=== PATIENT | female | born 1990 | race Caucasian/White ===

== ENCOUNTER 2017-02-14 05:58 | Inpatient (IN) | payer OTHER ==
[~2017-02-14] VITALS: Ht 172.7 cm; Wt 93.4 kg
[~2017-02-14 05:58] MED LIST: SERT50TA PO
[2017-02-14] MEDS ORDERED: 0.9 % SODIUM CHLORIDE 10 ML DISP.SYRIN. IV PRN ×2 (06:15→17:45)
[2017-02-14] MEDS ORDERED: TERBUTALINE 1 MG/ML VIAL. SQ PRN (06:15)
[2017-02-14] MEDS ORDERED: LEVE500T6 PO (06:15)
[2017-02-14] MEDS ORDERED: ONDANSETRON PF 4 MG/2 ML VIAL. IV PRN (06:15)
[2017-02-14] MEDS ORDERED: OXYTOCIN 30 UNIT/500 ML PREMIX 500 ML IV PRN ×3 (06:15→17:45)
[2017-02-14] MEDS ORDERED: CYCL10TA2 PO (06:15)
[2017-02-14] MEDS ORDERED: LIDOCAINE 1% PF 30 ML VIAL. INJ PRN (06:15)
[2017-02-14] MEDS ORDERED: AMPICILLIN SODIUM 2 GM in IV NORMAL SALINE 100ML 100 ML IV ONE (06:30)
[2017-02-14 06:45] VITALS: BP 119/67
[2017-02-14] MEDS: IV RINGERS,LACTATED 1000ML 1,000 ML IV SCH ×3 (06:46→16:17)
[2017-02-14 07:15] LABS: HEMATOCRIT 36.2 % (36.0-47.0); HEMOGLOBIN 12.3 g/dL (12.0-15.5); RED BLOOD COUNT 3.86 x10^6/uL (3.50-5.40); RED CELL DISTRIBUTION WIDTH 13.5 % (11.5-14.5); WHITE BLOOD COUNT 8.3 x10^3/uL (4.0-11.0)
[2017-02-14] MEDS: levETIRAcetam 500 MG TABLET PO SCH ×2 (08:09→22:12)
[2017-02-14] MEDS: AMPICILLIN SODIUM 1 GM in IV NORMAL SALINE 50ML 50 ML IV SCH ×2 (10:52→14:28)
[2017-02-14] MEDS ORDERED: ROPIVacaine 0.2% IN 0.9%NACL PF 40 MG/20 ML DISP.SYRIN. ONE ×2 (10:59→11:00)
[2017-02-14] MEDS ORDERED: LIDOCAINE 2% PF Vial for OR 5 ML VIAL. ONE (17:13)
--- NOTE | 2017-02-14 17:35 | PDOC ---
VAGINAL DELIVERY DATE DATE: 02/14/17 TIME: 17:34 EDC: Feb 20, 2017 VAGINAL DELIVERY: VTX VACCUM ASSISTED: No SEX: Male WEIGHT Weight [ ] Nuchal Cord: No Amniotic Fluid: Meconium PAIN: Epidural EXTENSION: No EBL 300cc COMPLICATIONS none CONDITION Stable Signs of Intrauterine Infectio: None Shoulder Dystocia: No DIAGNOSIS TIUP del Problems: BROOKS RUBI MD February 14, 2017 17:35
--- NOTE | 2017-02-14 17:39 | PDOC1 ---
OB - History Hx of Present Care: Good Care Ultrasounds: Normal mid trimester US Obstetrical Complications: None Medical Complications: None, Other (Seizure disorder) Past Family/Social History * Past Medical, Surgical, Family and Obstetric Histories reviewed from chart. Blood Type: A+ Rubella: Immune RPR/VDRL: Negative GBS Status: Positive HBsAG: Negative OB - Chief Complaint & HPI Date of Admission: Date of Admission: February 14, 2017 at 05:58 Chief Complaint/History : 3 Para: 2 EDC: Feb 20, 2017 Reason for admission: induction of labor Indication for induction: other Admission Nurse Assessment Rev: Yes Problems: OB - Admission Exam Physical Exam Vitals: VS - Last 72 Hours, by Label Date Time Temp Pulse Resp B/P (MAP) Pulse Ox O2 Delivery O2 Flow Rate FiO2 02/14/17 06:45 97.7 65 18 119/67 (84) Room Air 97.7 HEENT: Normal, Nasal Mucosa Normal, Oropharynx Normal, Moist Membranes, Fontanelles Normal Heart: Regular Rate Lungs: Clear, Equal Abdomen: Gravid Extremities: Normal Pulses, No tenderness or swelling Reflexes: Normal Cervical Dilatation: 2cm Effacement: 50% Station: Ballotable Membranes: Intact Amniotic Fluid: Meconium Heart Rate: Normal Accelerations: Accelerations Present Short Term Variability: Present Contractions on Admission: >10 Minutes Apart Intensity: Moderate Assessment/Plan Assessment/Plan TIUP Seizure Disorder Induction ACSVD BROOKS RUBI MD February 14, 2017 17:39
[2017-02-14] MEDS ORDERED: ACETAMINOPHEN 325 MG TABLET. PO PRN (17:45)
[2017-02-14] MEDS ORDERED: SIMETHICONE 80 MG TAB.CHEW PO PRN (17:45)
[2017-02-14] MEDS ORDERED: diphenhydrAMINE HCL 25 MG CAPSULE PO PRN (17:45)
[2017-02-14] MEDS ORDERED: MAG HYDROX/ALUMINUM HYD/SIMETH 30 ML ORAL.SUSP PO PRN (17:45)
[2017-02-14] MEDS ORDERED: MAGNESIUM HYDROXIDE 2,400 MG/30 ML ORAL.SUSP. PO PRN (17:45)
[2017-02-14] MEDS ORDERED: HYDROCORTISONE 1% TOPICAL OINTMENT 30GM TUBE. TP PRN (17:45)
[2017-02-14] MEDS ORDERED: BENZOCAINE 20% TOPICAL AEROSOL SPRAY 57GM CAN. TP PRN (17:45)
[2017-02-14] MEDS ORDERED: ZOLPIDEM 5 MG TABLET. PO PRN (17:45)
[2017-02-14] MEDS ORDERED: PHENYLEPH/MINERAL OIL/PETROLAT RECTAL OINTMENT 28GM TUBE. RC PRN (17:45)
[2017-02-14] MEDS: IBUPROFEN 600 MG TABLET. PO PRN (18:52)
[2017-02-14 21:00] VITALS: BP 116/54
[2017-02-14] MEDS: IBUPROFEN 800 MG TABLET. PO SCH (22:00)
[2017-02-14 22:10] VITALS: BP 108/60
[2017-02-14] MEDS: CYCLOBENZAPRINE 10 MG TABLET. PO SCH (22:12)
[2017-02-15] VITALS (14 sets, daily range): BP systolic 90–120; BP diastolic 49–68
[2017-02-15] MEDS: IBUPROFEN 600 MG TABLET. PO PRN (05:23)
[2017-02-15] MEDS: IBUPROFEN 800 MG TABLET. PO SCH ×3 (06:00→22:03)
[2017-02-15 06:15] LABS: RPR REFLEX Non Reactive (Non Reactive)
[2017-02-15] MEDS ORDERED: IV RINGERS,LACTATED 1000ML 1,000 ML IV SCH (06:37)
[2017-02-15] MEDS ORDERED: LIDOCAINE 1% 1 ML SYRINGE. ID PRN (06:45)
[2017-02-15] MEDS ORDERED: fentaNYL PF VIAL 100 MCG/2 ML VIAL IV PRN (06:45)
[2017-02-15] MEDS ORDERED: ONDANSETRON PF 4 MG/2 ML VIAL. IV PRN (06:45)
[2017-02-15] MEDS ORDERED: PROCHLORPERAZINE 10 MG/2 ML VIAL. IV PRN (06:45)
[2017-02-15] MEDS: levETIRAcetam 500 MG TABLET PO SCH ×2 (07:14→22:03)
[2017-02-15] MEDS ORDERED: FERROUS SULFATE 325 MG TABLET. PO SCH (08:00)
[2017-02-15] MEDS ORDERED: ROCURONIUM 50 MG/5 ML VIAL. ONE (08:32)
[2017-02-15] MEDS ORDERED: fentaNYL PF VIAL 100 MCG/2 ML VIAL ONE (08:32)
[2017-02-15] MEDS ORDERED: LIDOCAINE 2% PF Vial for OR 5 ML VIAL. ONE (08:33)
[2017-02-15] MEDS ORDERED: ONDANSETRON PF 4 MG/2 ML VIAL. ONE (08:33)
[2017-02-15] MEDS ORDERED: PROPOFOL 20 ML IV ONE (08:33)
[2017-02-15] MEDS ORDERED: DEXAMETHASONE SOD PHOS 20 MG/5 ML VIAL. ONE (08:33)
[2017-02-15] MEDS ORDERED: DESFLURANE 31 TO 60 MINUTES IH ONE (08:33)
[2017-02-15] MEDS ORDERED: BUPIVAC MPF-EPI 0.5%-1:200000 30 ML VIAL. ONE (08:46)
[2017-02-15] MEDS: fentaNYL PF VIAL 100 MCG/2 ML VIAL IV PRN ×3 (10:57→12:03)
[2017-02-15] MEDS: MORPHINE SULFATE 2 MG/ML DISP.SYRIN. IV PRN ×2 (11:03→11:14)
[2017-02-15] MEDS: HYDROmorphone 2 MG/ML VIAL IV PRN ×2 (11:22→11:36)
[2017-02-15] MEDS: HYDROcodone/APAP 5/325MG 1 TAB TABLET PO PRN ×2 (13:35→18:21)
[2017-02-15] MEDS: CYCLOBENZAPRINE 10 MG TABLET. PO SCH (22:03)
[2017-02-16] MEDS: IBUPROFEN 800 MG TABLET. PO SCH (06:18)
[2017-02-16 06:19] VITALS: BP 96/54
[2017-02-16] MEDS: levETIRAcetam 500 MG TABLET PO SCH (08:39)
[2017-02-16 11:10] VITALS: BP 101/58
[2017-02-16] MEDS: HYDROcodone/APAP 5/325MG 1 TAB TABLET PO PRN (11:10)
[2017-02-16 17:00] VITALS: BP 112/68
--- NOTE | 2017-02-16 18:21 | PDOC3 ---
OB DISCHARGE SUMMARY DATE OF ADMISSION: 02/14/17 DATE OF DISCHARGE: 02/16/17 REASON FOR ADMISSION: Induction of labor PROCEDURES: Ultrasound INTRAPARTUM PROCEDURES: Spontanous Vag Deliv PROCEDURES: Tubal Ligation, None OPERATIONS: None DISCHARGE DIAGNOSIS: Term Delivered DISCHARGE INFORMATION: Activity, Diet HOSPITAL COURSE Unremarkable CONDITION AT DISCHARGE Stable BROOKS RUBI MD Feb 16, 2017 18:21
--- NOTE | 2017-02-16 18:22 | PDOC ---
BRIEF OPERATIVE NOTE Date: February 15, 2017 Pre-Op Diagnosis Multiparous desires permanent sterilization Post-Op Diagnosis Same Procedure Performed PPBTL Surgeon Gina [employer] Team Member None Anesthesia Type: General Blood Loss 20cc Specimens Obtained L and R ovaducts Complications None BROOKS RUBI MD Feb 16, 2017 18:22
[2017-02-16] MEDS ORDERED: NAPR500T PO (18:26)
[2017-02-16] MEDS ORDERED: OXYC-323 PO (18:26)
--- NOTE | 2017-02-16 22:46 | OP ---
DATE OF SURGERY: 02/15/2017 PREOPERATIVE DIAGNOSIS: Multiparous, desires permanent sterilization. POSTOPERATIVE DIAGNOSIS: Multiparous, desires permanent sterilization. PROCEDURE: bilateral tubal ligation. SURGEON: Brooks Fuentes M.D. ENTRY LEVEL ADMINISTRATIVE ASSISTANT: None. ANESTHESIA: General. ESTIMATED BLOOD LOSS: 20 mL. FLUIDS: Crystalloid. SPECIMENS: Left and right oviducts. COMPLICATIONS: None. CONDITION: Stable. DESCRIPTION OF PROCEDURE: Risks, benefits, indications, alternatives discussed in detail with the patient. The patient brought to the OR theater, placed in supine position. After adequate general anesthesia, the patient was prepped and draped in usual sterile manner. A small transverse infraumbilical incision was made sharply with a scalpel, carried down through subcutaneous tissue with Encarnacion scissors. A rectus fascia was grasped x 2 with Allis clamps and elevated way above the intraabdominal contents, incised sharply with the scalpel. The parietal peritoneum was entered bluntly with gloved hand. [facility] retractor was placed within this incision, first to manipulate the incision over the left cornu. Left cornu was identified tube was grasped with Windom clamps, followed to its fimbriated end . A relatively avascular portion in the mid ampullary region was identified. Window was created, 2-0 chromic ties were used to doubly ligate the tube approximately 3 cm apart, then transected the tube between the two ligatures. The ends of each segment were burned and tube was allowed to fall back within the abdominal cavity. Same procedure was carried out on the opposite side. The rectus fascia was reapproximated with 0 Vicryl in a running manner. Skin was reapproximated with 4-0 Monocryl in subcuticular fashion. The incision site was infiltrated with 0.5% Marcaine with epinephrine for additional pain control. The patient tolerated the procedure well. Sponge, needle and instrument counts were correct x 2 per nursing staff. The patient went to postop anesthesia recovery in stable condition. BROOKS FUENTES MD DR: LYNETTE/jose JOB#: [id number] / [id number]
--- NOTE | 2017-02-17 13:54 | PATHOLOGY ---
PATHOLOGY REPORT * * * * * * * * FINAL DIAGNOSIS: A. Left tubal ligation: - Segment of fallopian tube confirmed, with cystic Walthard's rests. B. Right tubal ligation: - Segment of fallopian tube confirmed, with cystic Walthard's rests. REPORT ELECTRONICALLY SIGNED BY: Andrei Biggs M.D. DATE/TIME: 02/17/2017 13:53 * * * * * * * * GROSS PATHOLOGY: A. Received in formalin labeled "Tri Underwood, left fallopian tube," is a pink-pressley segment of fallopian tube measuring 1.3 cm in length and 0.6 cm in diameter. The tissue is serially sectioned into 3 segments and submitted entirely in cassette A1. B. Received in formalin labeled "Tri Underwood, right fallopian tube," is a pink-pressley segment of fallopian tube measuring 1.8 cm in length and 0.5 cm in diameter. The tissue is serially sectioned into 6 segments and submitted entirely in cassette B1. (NEVIN; 02/16/2017) INITIAL CPT CODE(S): A; 22787 B; 22554 Professional services performed [place] [address] Technical services performed by [facility] at [address] [place] [address], [address] [address]. SPECIMEN(S) RECEIVED: A.Left fallopian tube B.Right fallopian tube CLINICAL HISTORY: Bilateral tubal ligation PATIENT: TRI UNDERWOOD /AGE: 2 1990 (Age: 26) PATIENT #: [id number] ALT CASE #: SPECIMEN COLLECTION DATE: 02/15/2017 SPECIMEN RECEIVED DATE: 02/15/2017 [facility] - [address] [place] [address] - PHONE: [phone] * * * END OF REPORT * * *
== END 2017-02-16 19:09 | disposition home or self-care (01) | DRG 767 ==
LOC: 3 SO LND 05:58 → 3 NORTH 21:01
PROVIDERS: ADMIT Specialist; ATTEND Specialist
PROC: 10E0XZZ Delivery of Products of Conception, External Approach (ICD-10-PCS; principal; 2017-02-14)
PROC: 3E0S3CZ (ICD-10-PCS; 2017-02-14)
PROC: 00HU33Z Insertion of Infusion Device into Spinal Canal, Percutaneous Approach (ICD-10-PCS; 2017-02-14)
PROC: 0UB70ZZ Excision of Bilateral Fallopian Tubes, Open Approach (ICD-10-PCS; 2017-02-15)
DX: O77.0 Labor and delivery complicated by meconium in amniotic fluid (principal); O99.354 Diseases of the nervous system complicating childbirth; G40.909 Epilepsy, unspecified, not intractable, without status epilepticus; Z37.0 Single live birth; Z3A.00 Weeks of gestation of pregnancy not specified; Z30.2 Encounter for sterilization
CPT/HCPCS: 36415; 85014; 85027; 86593; 86850; 86900; 86901; C1769; J0290; J0780; J1100; J1170; J2270; J2405; J2590; J2704; J2795; J3010; J3490; J7120

== ENCOUNTER 2018-09-23 13:23 | Emergency (ER) | payer SELFPAY ==
[~2018-09-23] VITALS: Ht 175.3 cm; Wt 63.5 kg
[~2018-09-23 13:23] MED LIST changes: +CYCL10TA2 PO; +LEVE500T6 PO; +NAPR-683 PO; +OXYC1TAB15 PO
[2018-09-23 14:42] LABS: BILIRUBIN,URINE NEGATIVE (NEG); CLARITY,URINE CLEAR; COLOR,URINE YELLOW; NITRITE,URINE NEGATIVE (NEG); PROTEIN,URINE NEGATIVE (NEG-TRACE); UROBILINOGEN,URINE 0.2 mg/dL (0.2 mg/dL)
[2018-09-23 14:53] LABS: BACTERIA,URINE FEW /HPF (0-FEW); SQUAMOUS EPITHELIAL CELL,UR MOD /LPF; WBC,URINE 0 /HPF (0-4)
[2018-09-23] MEDS ORDERED: fentaNYL PF VIAL 100 MCG/2 ML VIAL IV ONE (15:00)
[2018-09-23] MEDS ORDERED: KETOROLAC 30 MG/ML VIAL. IV ONE (15:00)
[2018-09-23] MEDS ORDERED: IV NORMAL SALINE 1000ML BAG 1,000 ML IV ONE (15:00)
--- NOTE | 2018-09-23 15:08 | PHYS DOC ---
Past Medical History Past Medical History: Seizure Additional Past Medical Histor: epilepsy, OVARIAN CYSTS, chronic back pain Past Surgical History: No Surgical History, Tubal ligation Alcohol Use: None Drug Use: Marijuana Adult General Chief Complaint Chief Complaint: PAIN ON URINATION [facility] HPI Patient is a 27 year old female who presents with right flank pain that radiates to the right lower abdomen. Patient states started September 19. She denies seeing any blood in her urine, nausea, vomiting, diarrhea, fever, vaginal bleeding, vaginal discharge. She rates pain a 10 out of 10. States that he contact the contraction. She is no past medical history normally history she has tubal ligation. She has no known drug allergies. She last took any for pain yesterday which was ibuprofen and tramadol. Review of Systems Review of Systems Constitutional: Denies fever or chills [] Eyes: Denies change in visual acuity, redness, or eye pain [] HENT: Denies nasal congestion or sore throat [] Respiratory: Denies cough or shortness of breath [] Cardiovascular: No additional information not addressed in HPI [] GI: Denies abdominal pain, nausea, vomiting, bloody stools or diarrhea [] : Denies dysuria or hematuria [] Musculoskeletal: Denies back pain or joint pain [] Integument: Denies rash or skin lesions [] Neurologic: Denies headache, focal weakness or sensory changes [] Endocrine: Denies polyuria or polydipsia [] All other systems were reviewed and found to be within normal limits, except as documented in this note. Current Medications Current Medications Current Medications Medications (Trade) Dose Ordered Sig/Jaskaran Start Time Stop Time Status Last Admin Dose Admin Fentanyl Citrate (Fentanyl 2ml Vial) 50 mcg 1X ONCE 09/23/18 15:00 09/23/18 15:03 DC 09/23/18 15:22 50 MCG Ketorolac Tromethamine (Toradol 30mg Vial) 30 mg 1X ONCE 09/23/18 15:00 09/23/18 15:03 DC 09/23/18 15:19 30 MG Sodium Chloride 1,000 ml @ 1,000 mls/hr 1X ONCE 09/23/18 15:00 09/23/18 15:59 DC 09/23/18 15:19 1,000 MLS/HR Allergies Allergies Allergies Coded Allergies Type Severity Reaction Last Updated Verified No Known Drug Allergies 10/7/14 No Physical Exam Physical Exam Constitutional: Well developed, well nourished, no acute distress, non-toxic appearance. [] HENT: Normocephalic, atraumatic, bilateral external ears normal, oropharynx moist, no oral exudates, nose normal. [] Eyes: PERRLA, EOMI, conjunctiva normal, no discharge. [] Neck: Normal range of motion, no tenderness, supple, no stridor. [] Cardiovascular:Heart rate regular rhythm, no murmur [] Lungs & Thorax: Bilateral breath sounds clear to auscultation [] Abdomen: Bowel sounds normal, soft, no tenderness, no masses, no pulsatile masses. [] Skin: Warm, dry, no erythema, no rash. [] Back: No tenderness, no CVA tenderness. [] Extremities: No tenderness, no cyanosis, no clubbing, ROM intact, no edema. [] Neurologic: Alert and oriented X 3, normal motor function, normal sensory function, no focal deficits noted. [] Psychologic: Affect normal, judgement normal, mood normal. [] Current Patient Data Vital Signs Vital Signs Date Time Temp Pulse Resp B/P (MAP) Pulse Ox O2 Delivery O2 Flow Rate FiO2 09/23/18 16:50 48 90/51 (64) 100 09/23/18 16:00 16 Room Air 09/23/18 14:32 98.6 98.6 Lab Values Laboratory Tests Test 09/23/18 14:30 09/23/18 14:38 09/23/18 14:47 09/23/18 15:15 Urine Collection Type Unknown Urine Color Yellow Urine Clarity Clear Urine pH 7.0 Urine Specific [place] 1.015 Urine Protein Negative mg/dL (NEG-TRACE) Urine Glucose (UA) Negative mg/dL (NEG) Urine Ketones (Stick) Negative mg/dL (NEG) Urine Blood Negative (NEG) Urine Nitrite Negative (NEG) Urine Bilirubin Negative (NEG) Urine Urobilinogen Dipstick 0.2 mg/dL (0.2 mg/dL) Urine Leukocyte Esterase Negative (NEG) Urine RBC 1-2 /HPF (0-2) Urine WBC 0 /HPF (0-4) Urine Squamous Epithelial Cells Mod /LPF Urine Bacteria Few /HPF (0-FEW) Urine Mucus Mod /LPF POC Urine HCG, Qualitative Hcg negative (Negative) Hcg negative (Negative) White Blood Count 6.7 x10^3/uL (4.0-11.0) Red Blood Count 4.51 x10^6/uL (3.50-5.40) Hemoglobin 14.5 g/dL (12.0-15.5) Hematocrit 41.9 % (36.0-47.0) Mean Corpuscular Volume 93 fL (79-100) Mean Corpuscular Hemoglobin 32 pg (25-35) Mean Corpuscular Hemoglobin Concent 35 g/dL (31-37) Red Cell Distribution Width 14.3 % (11.5-14.5) Platelet Count 227 x10^3/uL (140-400) Neutrophils (%) (Auto) 69 % (31-73) Lymphocytes (%) (Auto) 24 % (24-48) Monocytes (%) (Auto) 6 % (0-9) Eosinophils (%) (Auto) 2 % (0-3) Basophils (%) (Auto) 1 % (0-3) Neutrophils # (Auto) 4.6 x10^3uL (1.8-7.7) Lymphocytes # (Auto) 1.6 x10^3/uL (1.0-4.8) Monocytes # (Auto) 0.4 x10^3/uL (0.0-1.1) Eosinophils # (Auto) 0.1 x10^3/uL (0.0-0.7) Basophils # (Auto) 0.0 x10^3/uL (0.0-0.2) Sodium Level 143 mmol/L (136-145) Potassium Level 4.2 mmol/L (3.5-5.1) Chloride Level 108 mmol/L (98-107) H Carbon Dioxide Level 24 mmol/L (21-32) Anion Gap 11 (6-14) Blood Urea Nitrogen 8 mg/dL (7-20) Creatinine 0.7 mg/dL (0.6-1.0) Estimated GFR (Cockcroft-Gault) 99.6 BUN/Creatinine Ratio 11 (6-20) Glucose Level 91 mg/dL (70-99) Calcium Level 9.3 mg/dL (8.5-10.1) Total Bilirubin 0.2 mg/dL (0.2-1.0) Aspartate Amino Transferase (AST) 15 U/L (15-37) Alanine Aminotransferase (ALT) 20 U/L (14-59) Alkaline Phosphatase 59 U/L (46-116) Total Protein 6.9 g/dL (6.4-8.2) Albumin 3.3 g/dL (3.4-5.0) L Albumin/Globulin Ratio 0.9 (1.0-1.7) L Laboratory Tests 09/23/18 15:15 Laboratory Tests 09/23/18 15:15 EKG EKG [] Radiology/Procedures Radiology/Procedures CT ABD PELV Impressions: [facility] [address] [place] [address] IMAGING REPORT Signed PATIENT: KELSEY UNDERWOOD ACCOUNT: [id number] : 1990 LOCATION: ER AGE: 27 SEX: F EXAM STATUS: REG ER ORD. PHYSICIAN: JYOTHI JACQUES APRN REASON: rIGHT FLANK, RIGHT LOWER ABDOMEN PAIN PROCEDURE: CT ABDOMEN PELVIS WO CONTRAST CT ABDOMEN PELVIS WO CONTRAST Indication: right flank pain Exposure: One or more of the following individualized dose reduction techniques were utilized for this examination: 1. Automated exposure control 2. Adjustment of the mA and/or kV according to patient size 3. Use of iterative reconstruction technique. Comparison: None are available. Contrast: No intravenous contrast given. No oral contrast per request. Evaluation of solid viscera, bowel and vasculature is compromised by the noncontrast technique. Lower thorax: Lung bases are clear. Liver: Unremarkable Spleen: Unremarkable Pancreas: Unremarkable Adrenals: No evidence of mass. Kidneys: No obvious mass. Urinary tracts: No urolithiasis or hydronephrosis. Gallbladder: No calcified stone Aorta: Nonaneurysmal Lymph nodes: Small mesenteric lymph nodes are identified, right lower quadrant node measures 1 cm short axis. GI tract: No bowel obstruction. Mild retained stool through the colon. No evidence of acute colitis. Appendix is normal. Reproductive organs:No evidence of mass. Urinary bladder: Not adequately distended for evaluation. Peritoneum: No evidence of pneumoperitoneum. No free fluid. Abdominal wall: Unremarkable Spine: Vertebral body height and alignment are intact. Bones: No destructive process identified. External Soft Tissue: No acute findings. IMPRESSION: 1. No evidence of urinary tract calculus or obstruction. 2. The appendix is normal. 3. Borderline enlarged mesenteric lymph nodes, particularly the right lower quadrant. These are most likely reactive or inflammatory. Could indicate mesenteric adenitis. Electronically signed by: Jayden Gabriel MD (09/23/2018 4:48 PM) [facility] DICTATED and SIGNED BY: JAYDEN GABRIEL MD DATE: 09/23/18 4421 Course & Med Decision Making Course & Med Decision Making Patient is a 27 year old female who presents with right flank pain that radiates to the right lower abdomen. Patient states started September 19. She denies seeing any blood in her urine, nausea, vomiting, diarrhea, fever, vaginal bleeding, vaginal discharge. She rates pain a 10 out of 10. States that he contact the contraction. She is no past medical history normally history she has tubal ligation. She has no known drug allergies. She last took any for pain yesterday which was ibuprofen and tramadol. Alert and oriented. Skin pink warm and dry. Mucous membranes are moist. CVA tenderness, right flank. Right lower abdomen pain with palpation pressure only. Patient states when she urinates there is no burning but she feels that there is a squeezing in the right lower abdomen after she urinates. Abdomen is soft. Lungs are clear to auscultation all lobes. Heart regular without murmur. Afebrile. Urinalysis shows no infection. Patient is given pain medication and fluids in the ED. CT scan shows 1. No evidence of urinary tract calculus or obstruction. 2. The appendix is normal. 3. Borderline enlarged mesenteric lymph nodes, particularly the right lower quadrant. These are most likely reactive or inflammatory. Could indicate mesenteric adenitis. Patient to follow up with her primary care monday. Take medications as prescribed. Staff Physician Addendum: I was working in the ER during the course of this patient's visit. I was available for consultation as needed, but I was not directly involved in the care of this patient. Dragon Disclaimer Dragon Disclaimer This electronic medical record was generated, in whole or in part, using a voice recognition dictation system. Departure Departure Impression: Primary Impression: Abdominal pain Disposition: HOME, SELF-CARE Condition: STABLE Referrals: JOHNATHON ZHAO APRN (PCP) Patient Instructions: Abdominal Pain (Nonspecific) Additional Instructions: Follow up with your primary care Monday. Take medications as prescribed. Scripts Hydrocodone/Apap 5-325 (NORCO 5-325 TABLET) 1 Each Tablet 1 TAB PO PRN Q6HRS PRN for PAIN, #10 TAB 0 Refills Prov: JYOTHI JACQUES APRN 09/23/18 Problem Qualifiers Primary Impression: Abdominal pain Abdominal location: right lower quadrant Qualified Codes: R10.31 - Right lower quadrant pain JYOTHI JACQUES APRN Sep 23, 2018 15:08 JUAN MANUEL STOUT MD Sep 24, 2018 06:44
[2018-09-23 15:31] LABS: BASO % 1 % (0-3); EOS # 0.1 x10^3/uL (0.0-0.7); EOS % 2 % (0-3); HEMATOCRIT 41.9 % (36.0-47.0); HEMOGLOBIN 14.5 g/dL (12.0-15.5); LYMPH # 1.6 x10^3/uL (1.0-4.8); LYMPH % 24 % (24-48); MEAN CORPUSCULAR HEMOGLOBIN 32 pg (25-35); MEAN CORPUSCULAR HGB CONC 35 g/dL (31-37); MEAN CORPUSCULAR VOLUME 93 fL (79-100); MONO # 0.4 x10^3/uL (0.0-1.1); MONO % 6 % (0-9); NEUT # 4.6 x10^3uL (1.8-7.7); NEUT % 69 % (31-73); PLATELET COUNT 227 x10^3/uL (140-400); RED BLOOD COUNT 4.51 x10^6/uL (3.50-5.40); RED CELL DISTRIBUTION WIDTH 14.3 % (11.5-14.5); WHITE BLOOD COUNT 6.7 x10^3/uL (4.0-11.0)
[2018-09-23 15:41] LABS: CALCIUM 9.3 mg/dL (8.5-10.1); CREATININE 0.7 mg/dL (0.6-1.0); GFR 99.6; POTASSIUM 4.2 mmol/L (3.5-5.1)
[2018-09-23 15:48] LABS: ALBUMIN 3.3 g/dL (3.4-5.0); ALBUMIN/GLOBULIN RATIO 0.9 (1.0-1.7); TOTAL BILIRUBIN 0.2 mg/dL (0.2-1.0); TOTAL PROTEIN 6.9 g/dL (6.4-8.2)
[2018-09-23 16:50] VITALS: BP 90/51
--- NOTE | 2018-09-23 16:52 | RAD ---
CT ABDOMEN PELVIS WO CONTRAST Indication: right flank pain Exposure: One or more of the following individualized dose reduction techniques were utilized for this examination: 1. Automated exposure control 2. Adjustment of the mA and/or kV according to patient size 3. Use of iterative reconstruction technique. Comparison: None are available. Contrast: No intravenous contrast given. No oral contrast per request. Evaluation of solid viscera, bowel and vasculature is compromised by the noncontrast technique. Lower thorax: Lung bases are clear. Liver: Unremarkable Spleen: Unremarkable Pancreas: Unremarkable Adrenals: No evidence of mass. Kidneys: No obvious mass. Urinary tracts: No urolithiasis or hydronephrosis. Gallbladder: No calcified stone Aorta: Nonaneurysmal Lymph nodes: Small mesenteric lymph nodes are identified, right lower quadrant node measures 1 cm short axis. GI tract: No bowel obstruction. Mild retained stool through the colon. No evidence of acute colitis. Appendix is normal. Reproductive organs:No evidence of mass. Urinary bladder: Not adequately distended for evaluation. Peritoneum: No evidence of pneumoperitoneum. No free fluid. Abdominal wall: Unremarkable Spine: Vertebral body height and alignment are intact. Bones: No destructive process identified. External Soft Tissue: No acute findings. IMPRESSION: 1. No evidence of urinary tract calculus or obstruction. 2. The appendix is normal. 3. Borderline enlarged mesenteric lymph nodes, particularly the right lower quadrant. These are most likely reactive or inflammatory. Could indicate mesenteric adenitis. Electronically signed by: Jayden Gabriel MD (09/23/2018 4:48 PM) [facility]
[2018-09-23] MEDS ORDERED: HYDR-3164 PO (17:06)
== END 2018-09-23 17:32 | disposition home or self-care (01) ==
LOC: ER 13:23
DX: R10.31 Right lower quadrant pain (principal); G89.29 Other chronic pain; Z98.51 Tubal ligation status
CPT/HCPCS: 36415; 74176; 80053; 81001; 81025; 85025; 96374; 96375; 99284; J1885; J3010; J7030

== ENCOUNTER 2021-06-12 13:31 | Emergency (ER) | payer SELFPAY ==
[~2021-06-12] VITALS: Ht 175.3 cm; Wt 79.4 kg
[~2021-06-12 13:31] MED LIST changes: +HYDR-3164 PO
--- NOTE | 2021-06-12 15:05 | PHYS DOC ---
Past Medical History Past Medical History: Seizure Additional Past Medical Histor: epilepsy, OVARIAN CYSTS, chronic back pain Past Surgical History: Tubal ligation Smoking Status: Current Every Day Smoker Additional Information: 09/19 ppd Alcohol Use: None Drug Use: Marijuana Social History Narrative: occasional use General Adult EDM: Chief Complaint: FLANK PAIN HPI: HPI: Patient is a 30 year old female who present to ER for evaluation of right abdominal pain started yesterday. Patient denies any nausea vomiting but does have fever and chills, no cough, no trouble breathing. Patient denies any urinary symptoms. Patient denies any diarrhea OR constipation problem Review of Systems: Review of Systems: Constitutional: Denies fever or chills. [] Eyes: Denies change in visual acuity. [] HENT: Denies nasal congestion or sore throat. [] Respiratory: Denies cough or shortness of breath. [] Cardiovascular: Denies chest pain or edema. [] GI: Positive for right abdominal pain, no nausea vomiting, no diarrhea, no constipation] : Denies dysuria. [] Musculoskeletal: Denies back pain or joint pain. [] Integument: Denies rash. [] Neurologic: Denies headache, focal weakness or sensory changes. [] Endocrine: Denies polyuria or polydipsia. [] Lymphatic: Denies swollen glands. [] Psychiatric: Denies depression or anxiety. [] Heart Score: C/O Chest Pain: N/A Risk Factors: Risk Factors: DM, Current or recent (<one month) smoker, HTN, HLP, family history of CAD, obesity. Risk Scores: Score 0 - 3: 2.5% MACE over next 6 weeks - Discharge Home Score 4 - 6: 20.3% MACE over next 6 weeks - Admit for Clinical Observation Score 7 - 10: 72.7% MACE over next 6 weeks - Early Invasive Strategies Allergies: Allergies: Allergies Coded Allergies Type Severity Reaction Last Updated Verified No Known Drug Allergies 06/12/21 No Physical Exam: PE: Constitutional: Well developed, well nourished, no acute distress, non-toxic appearance. [] HENT: Normocephalic, atraumatic, bilateral external ears normal, oropharynx moist, no oral exudates, nose normal. [] Eyes: PERRLA, EOMI, conjunctiva normal, no discharge. [] Neck: Normal range of motion, no tenderness, supple, no stridor. [] Cardiovascular:Heart rate regular rhythm, no murmur [] Lungs & Thorax: Bilateral breath sounds clear to auscultation [] Abdomen: Bowel sounds normal, soft, there is right-sided tenderness to palpation, right flank tenderness to palpation, right lower abdominal tender to palpation, no masses, no pulsatile masses. [] Skin: Warm, dry, no erythema, no rash. [] Back: No tenderness, right CVA tenderness. [] Extremities: No tenderness, no cyanosis, no clubbing, ROM intact, no edema. [] Neurologic: Alert and oriented X 3, normal motor function, normal sensory function, no focal deficits noted. [] Psychologic: Affect normal, judgement normal, mood normal. [] Current Patient Data: Labs: Laboratory Tests Test 06/12/21 14:45 06/12/21 15:08 06/12/21 15:12 Urine Collection Type Void Urine Color Yellow Urine Clarity Clear Urine pH 6.5 Urine Specific [place] 1.015 Urine Protein Negative mg/dL Urine Glucose (UA) Negative mg/dL Urine Ketones (Stick) Trace mg/dL Urine Blood Negative Urine Nitrite Negative Urine Bilirubin Negative Urine Urobilinogen Dipstick 1.0 mg/dL Urine Leukocyte Esterase Small Urine RBC Occ /HPF Urine WBC Occ /HPF Urine Squamous Epithelial Cells Many /LPF Urine Bacteria Few /HPF Urine Mucus Slight /LPF White Blood Count 7.1 x10^3/uL Red Blood Count 4.28 x10^6/uL Hemoglobin 14.1 g/dL Hematocrit 40.3 % Mean Corpuscular Volume 94 fL Mean Corpuscular Hemoglobin 33 pg Mean Corpuscular Hemoglobin Concent 35 g/dL Red Cell Distribution Width 13.1 % Platelet Count 191 x10^3/uL Neutrophils (%) (Auto) 74 % Lymphocytes (%) (Auto) 19 % Monocytes (%) (Auto) 6 % Eosinophils (%) (Auto) 1 % Basophils (%) (Auto) 1 % Neutrophils # (Auto) 5.2 x10^3/uL Lymphocytes # (Auto) 1.3 x10^3/uL Monocytes # (Auto) 0.4 x10^3/uL Eosinophils # (Auto) 0.1 x10^3/uL Basophils # (Auto) 0.0 x10^3/uL Sodium Level 137 mmol/L Potassium Level 3.8 mmol/L Chloride Level 104 mmol/L Carbon Dioxide Level 26 mmol/L Anion Gap 7 Blood Urea Nitrogen 5 mg/dL Creatinine 0.9 mg/dL Estimated GFR (Cockcroft-Gault) 73.0 BUN/Creatinine Ratio 6 Glucose Level 91 mg/dL Calcium Level 8.9 mg/dL Magnesium Level 2.0 mg/dL Total Bilirubin 0.2 mg/dL Aspartate Amino Transf (AST/SGOT) 15 U/L Alanine Aminotransferase (ALT/SGPT) 25 U/L Alkaline Phosphatase 74 U/L Total Protein 7.2 g/dL Albumin 3.2 g/dL Albumin/Globulin Ratio 0.8 Lipase 46 U/L Bedside Urine HCG, Qualitative Hcg negative Current Medications Medications (Trade) Dose Ordered Sig/Jaskaran Route PRN Reason Start Time Stop Time Status Last Admin Dose Admin Ketorolac Tromethamine (Toradol 30mg Vial) 30 mg 1X ONCE IVP 06/12/21 15:15 06/12/21 15:16 DC 06/12/21 15:40 Iohexol (Omnipaque 300 Mg/ml) 75 ml 1X ONCE IV 06/12/21 16:15 06/12/21 16:16 DC 06/12/21 16:17 Morphine Sulfate (Morphine Sulfate) 5 mg 1X ONCE IV 06/12/21 17:00 06/12/21 17:01 DC 06/12/21 16:57 Vital Signs: Vital Signs Date Time Temp Pulse Resp B/P (MAP) Pulse Ox O2 Delivery O2 Flow Rate FiO2 06/12/21 14:46 98.7 86 20 127/79 (95) 99 Room Air 98.7 EKG: EKG: [] Radiology/Procedures: Radiology/Procedures: [][facility] [address] [place], [place] [id number] IMAGING REPORT Signed PATIENT: KELSEY UNDERWOOD ACCOUNT: [id number] : 1990 LOCATION: ER AGE: 30 SEX: F EXAM STATUS: REG ER ORD. PHYSICIAN: VANESA MCLEOD DO REASON: right side abdominal pain;OMNI 300, 75ML PROCEDURE: CT ABD PELV W/ IV CONTRST ONLY Exam: CT of abdomen and pelvis with contrast INDICATION: Right-sided abdominal pain TECHNIQUE: Sequential axial images through the abdomen and pelvis obtained following the administration of 75 mL of Omni 300 IV contrast. Sagittal and coronal reformatted images were reconstructed from the axial data and reviewed. Exposure: One or more of the following in the visualized dose reduction techniques were utilized for this examination: 1. Automated exposure control 2. Adjustment of the MA and/or KV according to patient size 3. Use of iterative of reconstructive technique Comparisons: 09/23/2018 FINDINGS: Heart size is normal. No pericardial effusion. Visualized lung bases are clear. No pleural effusion. Liver, spleen, pancreas, gallbladder and adrenals are unremarkable. No perinephric inflammation or hydronephrosis. No renal or ureteral calculi are identified. Bladder is partially distended and not well evaluated. Uterus is absent. No abnormal adnexal mass. Circumferential wall thickening with adjacent fat stranding at the ascending colon/cecum. Otherwise, Large and small bowel are unremarkable. Appendix is normal. No free intra-abdominal air or fluid. No obstruction. Abdominal aorta has a normal course and caliber. Abdominal vasculature is patent. Several prominent mildly enlarged right lower quadrant mesenteric lymph nodes are noted, similar compared to the prior study. No suspicious osseous lesions or acute fractures. IMPRESSION: Inflammatory changes of the right colon. This may be infectious or inflammatory in etiology. Correlate with symptomatology and for history of inflammatory bowel disease. Follow-up for resolution is recommended. Electronically signed by: Isidro Monzon MD (06/12/2021 4:30 PM) [facility] DICTATED and SIGNED BY: ISIDRO MONZON MD DATE: 06/12/21 [id number] 0 Course & Med Decision Making: Course & Med Decision Making Pertinent Labs and Imaging studies reviewed. (See chart for details) Patient is a 30-year-old female who present to ED due to right abdominal pain, CT scan her abdomen pelvis show some inflammation seen in ascending colon and cecum consistent with inflammatory disease. Review of her medical record showed that she had previously been evaluated here for the same pain, CT scan several similar-appearing. UA showed evidence of UTI. Patient had no leukocytosis, normal appendix on CT scan. Patient was in no acute distress, nontoxic appearing. Patient will be discharged home with antibiotic and steroid to treat her UTI and inflammatory problem, she will need to have a referral to GI specia list for definitive evaluation and treatment. Patient was amenable to plan of care Afua Disclaimer: Afua Disclaimer: This electronic medical record was generated, in whole or in part, using a voice recognition dictation system. Departure Departure Impression: Primary Impression: Abdominal pain Additional Impression: UTI (urinary tract infection) Disposition: HOME / SELF CARE / HOMELESS Condition: IMPROVED Referrals: JOHNATHON ZHAO APRN (PCP) Please follow up with your doctor for a referral to GI specialist for outpatient evaluation and treatment or follow up with the GI doctor provided. KAYODE JOSE MD Patient Instructions: Abdominal Pain, Urinary Tract Infection Additional Instructions: Thank you for visiting our Emergency Department. We appreciate you trusting us with your care. If any additional problems come up don't hesitate to return to visit us. Please follow up with your primary care provider so they can plan additional care if needed and know about the problem that you had. If symptoms worsen come back to the Emergency Department. Any concerning symptoms that start such as chest pain, shortness of air, weakness or numbness on one side of the body, running high fevers or any other concerning symptoms return to the ER. Scripts Tramadol Hcl (TRAMADOL HCL) 50 Mg Tablet 50 MG PO Q4HRS PRN for PAIN, #20 TAB Prov: VANESA MCLEOD DO 06/12/21 Sulfamethoxazole/Trimethoprim (BACTRIM DS TABLET) 1 Each Tablet 1 TAB PO BID for 7 Days, #14 TAB 0 Refills Prov: VANESA MCLEOD DO 06/12/21 Prednisone (PREDNISONE) 20 Mg Tablet 20 MG PO DAILY for 10 Days, #10 TAB Prov: VANESA MCLEOD DO 06/12/21 VANESA MCLEOD DO Jun 12, 2021 15:05
[2021-06-12] MEDS ORDERED: KETOROLAC 30 MG/ML VIAL. IVP ONE (15:15)
[2021-06-12 15:16] LABS: BASO % 1 % (0-3); EOS # 0.1 x10^3/uL (0.0-0.7); EOS % 1 % (0-3); HEMATOCRIT 40.3 % (36.0-47.0); HEMOGLOBIN 14.1 g/dL (12.0-15.5); LYMPH # 1.3 x10^3/uL (1.0-4.8); LYMPH % 19 % (24-48); MEAN CORPUSCULAR HEMOGLOBIN 33 pg (25-35); MEAN CORPUSCULAR HGB CONC 35 g/dL (31-37); MEAN CORPUSCULAR VOLUME 94 fL (79-100); MONO # 0.4 x10^3/uL (0.0-1.1); MONO % 6 % (0-9); NEUT # 5.2 x10^3/uL (1.8-7.7); NEUT % 74 % (31-73); PLATELET COUNT 191 x10^3/uL (140-400); RED BLOOD COUNT 4.28 x10^6/uL (3.50-5.40); RED CELL DISTRIBUTION WIDTH 13.1 % (11.5-14.5); WHITE BLOOD COUNT 7.1 x10^3/uL (4.0-11.0)
[2021-06-12 15:18] LABS: BILIRUBIN,URINE NEGATIVE (NEG); CLARITY,URINE CLEAR; COLOR,URINE YELLOW; NITRITE,URINE NEGATIVE (NEG); PH,URINE 6.5 (<5.0-8.0); PROTEIN,URINE NEGATIVE (NEG-TRACE)
[2021-06-12 15:24] LABS: CALCIUM 8.9 mg/dL (8.5-10.1); CREATININE 0.9 mg/dL (0.6-1.0); POTASSIUM 3.8 mmol/L (3.5-5.1)
[2021-06-12 15:29] LABS: ALBUMIN 3.2 g/dL (3.4-5.0); ALBUMIN/GLOBULIN RATIO 0.8 (1.0-1.7); TOTAL BILIRUBIN 0.2 mg/dL (0.2-1.0); TOTAL PROTEIN 7.2 g/dL (6.4-8.2)
[2021-06-12 15:32] LABS: BACTERIA,URINE FEW /HPF (0-FEW); WBC,URINE OCC /HPF (0-4)
[2021-06-12 15:33] LABS: RBC,URINE OCC /HPF (0-2)
[2021-06-12] MEDS ORDERED: IOHEXOL 300 MG/ML 100ML VIAL. IV ONE (16:15)
--- NOTE | 2021-06-12 16:32 | RAD ---
Exam: CT of abdomen and pelvis with contrast INDICATION: Right-sided abdominal pain TECHNIQUE: Sequential axial images through the abdomen and pelvis obtained following the administrati on of 75 mL of Omni 300 IV contrast. Sagittal and coronal reformatted images were reconstructed from the axial data and reviewed. Exposure: One or more of the following in the visualized dose reduction techniques were utilized for this examination: 1. Automated exposure control 2. Adjustment of the MA and/or KV according to patient size 3. Use of iterative of reconstructive technique Comparisons: 09/23/2018 FINDINGS: Heart size is normal. No pericardial effusion. Visualized lung bases are clear. No pleural effusion. Liver, spleen, pancreas, gallbladder and adrenals are unremarkable. No perinephric inflammation or hydronephrosis. No renal or ureteral calculi are identified. Bladder is partially distended and not well evaluated. Uterus is absent. No abnormal adnexal mass. Circumferential wall thickening with adjacent fat stranding at the ascending colon/cecum. Otherwise, Large and small bowel are unremarkable. Appendix is normal. No free intra-abdominal air or fluid. No obstruction. Abdominal aorta has a normal course and caliber. Abdominal vasculature is patent. Several prominent mildly enlarged right lower quadrant mesenteric lymph nodes are noted, similar comp ared to the prior study. No suspicious osseous lesions or acute fractures. IMPRESSION: Inflammatory changes of the right colon. This may be infectious or inflammatory in etiology. Correlat e with symptomatology and for history of inflammatory bowel disease. Follow-up for resolution is tete mmended. Electronically signed by: Isidro Naranjo MD (06/12/2021 4:30 PM) [facility]
[2021-06-12] MEDS ORDERED: MORPHINE SULFATE 10 MG/ML VIAL. IV ONE (17:00)
[2021-06-12] MEDS ORDERED: PRED20TA PO (17:56)
[2021-06-12] MEDS ORDERED: SULF1TAB24 PO (17:56)
[2021-06-12] MEDS ORDERED: TRAM50TA PO (17:58)
[2021-06-12] MEDS ORDERED: methylPREDNISolone SOD SUCC PF 125 MG/2 ML VIAL. IV ONE (18:00)
[2021-06-12] MEDS ORDERED: cefTRIAXone IV Push 1 GM VIAL. IVP ONE (18:00)
[2021-06-12 18:13] VITALS: BP 126/84
== END 2021-06-12 18:16 | disposition home or self-care (01) ==
LOC: ER 13:31
DX: N39.0 Urinary tract infection, site not specified (principal); G89.29 Other chronic pain; G40.909 Epilepsy, unspecified, not intractable, without status epilepticus; F17.200 Nicotine dependence, unspecified, uncomplicated
CPT/HCPCS: 36415; 74177; 80053; 81001; 81025; 83690; 83735; 85025; 87086; 96374; 96375; 99285; J0696; J1885; J2270; J2930; Q9967